=== PATIENT | female | born 1965 | race Caucasian/White ===

== ENCOUNTER 2016-07-23 18:31 | Inpatient (IN) ==
[2016-07-23] MEDS ORDERED: ONDANSETRON 4 MG/2 ML VIAL IV STA ×2 (19:03→21:29)
[2016-07-23] MEDS ORDERED: SODIUM CHLORIDE 0.9% 500 ML IV STA (19:03)
--- NOTE | 2016-07-23 19:08 | EKG Report ---
Stationary ECG Study [facility] ER Test Date: 07/23/2016 6:40:28 PM Pat Name: PREETHI ANGELES Department: Room: 540 Gender: F Cager Operator: Lore : 1965 Requested by: Carlton Gonzalez Order Number: [id number] Reading MD: TOMAS EPPERSON Intervals [place]in Rate: 73 P: 54 AR: 199 QRS: -4 QRSD: 120 T: 46 QT: 391 QTc: 417 Interpretive Statements SINUS [id number] PRWP Electronically Signed On 07-26-16 13:13:50 ROUTE MANAGER by TOMAS EPPERSON [email or web address]
--- NOTE | 2016-07-23 19:44 | Emergency Department Note ---
IManuelito Gwan, am scribing for, and in the presence of, Carlton Huynh MD 19 :14. IAmina Charles R, MD, personally performed the services described in this documentation, ascribed by Pérez Billings in my presence, and it is both accurate and complete 944 . Arrival - Arrival Chief Complaint: Syncope Stated Complaint: faint, headache, throwing up, chills ED Nursing Triage Note: c/o having headache that started around 1500 today, states she then had a syncope episode x 3.,states no witness of the syncope episode, states she layed down on the floor and then the next thing she knew she was waking up, + abdomen pain, states this has happen in the past and it was due to her blood pressure dropping, states she got nauseated after her headache, patient states she is having generalized weakness, ekg obtained at time of triage, Mode of Arrival: Wheelchair Limitations: No Limitations Source: Patient, Old Records Reviewed, RN Notes Reviewed Time Seen by Provider: 07/23/16 18:51 - History of Present Illness HPI Narrative: Pt is a 51 y/o female, with a hx of migraines and HTN, who presents to the ED for further evaluation of MARTIN, syncope, N/V/D with an onset 1500 today. Patient stated that she was out shopping when she developed a MARTIN. Shortly after she began to have nausea and abd pain causing her to go to the bathroom. After she got into the bathroom, the pt then noted that she had a syncope episode. She then stated that she has been having V/D, generalized weakness and chills. This has prompted her visit to the ED for further evaluation. Nurses noted that the pt has had this happen before due to hypotension and that the pt had a syncope episode 3 times today. Patient confirmed that she last ate at 1100 today. She denies fever or chest pain. During exam, pt said that she still has a MARTIN and N/ D. No other problems/complaints reported in ED. Onset (ago): hour(s) Consistency: constant Severity: moderate Date of Last Menstrual Period: hyst Allergies/Adverse Reactions: Allergies Allergy/AdvReac Type Severity Reaction Status Date / Time No Known Allergies Allergy Unverified 07/23/16 18:38 Home Medications: Home Medications Medication Instructions Recorded Confirmed Type buPROPion XL [Wellbutrin Xl] 300 mg PO DAILY 07/23/16 07/23/16 History hydroCHLOROthiazide 12.5 mg PO DAILY 07/23/16 07/23/16 History [Hydrochlorothiazide] Review of System - Review of System 12 point system: reviewed and no additional remarkable complaints except as stated - Review of System Constitutional: Present: as per HPI, chills, weakness Gastrointestinal: Present: as per HPI, abdominal pain, nausea, vomiting, diarrhea Neurological: Present: headache Medical,Surgical,& Family Hx - Medical History Cardio: History of: Hypertension Psychological: History of: ADHD - Social History Smoking Status: Never smoker Frequency of Alcohol Use: None Type of Drug Use: None Exam Vital Signs: Vital Signs Temperature 97.4 F L 07/23/16 18:32 Pulse Rate 78 07/23/16 22:01 Respiratory Rate 20 07/23/16 22:01 Blood Pressure 131/88 07/23/16 22:01 O2 Sat by Pulse Oximetry 100 07/23/16 22:01 - General General appearance: alert, in no apparent distress - Head Head exam: Present: atraumatic, normocephalic - Eye Eye exam: Present: normal appearance, PERRL, EOMI - ENT ENT exam: Present: mucous membranes dry - Neck Neck exam: Present: full ROM, trachea midline. Absent: tenderness, meningismus , lymphadenopathy, thyromegaly - Chest Chest inspection: Present: symmetric chest wall rise. Absent: tenderness - Respiratory Respiratory exam: Present: normal lung sounds bilaterally. Absent: respiratory distress - Cardiovascular Cardiovascular exam: Present: regular rate, normal rhythm, normal heart sounds. Absent: murmur, rubs, gallop, clicks - Abdominal Exam Abdominal exam: Present: soft, hyperactive bowel sounds - Extremities Exam Extremities exam: Present: full ROM. Absent: tenderness, pedal edema, calf tenderness - Back Exam Back exam: Present: full ROM. Absent: tenderness - Neurological Exam Neurological exam: Present: alert, oriented X3, CN II-XII intact. Absent: motor sensory deficit - Psychiatric Psychiatric exam: Present: normal affect, normal mood - Skin Skin exam: Present: warm, dry, intact, normal color Course - Reevaluation(s) Reevaluation #1: Patient still feeling weak and has similar symptoms occur prior to arrival fell faint flashes abdominal cramping nausea Time: 22:50 - Consultations Consultation #1: Dr. Greenberg will admit patient. Time: 22:50 Results - Labs CBC & BMP: 07/23/16 19:37 07/23/16 21:20 Lab Results: I have reviewed the patients labs Labs: Laboratory Tests 07/23/16 19:37 Urine pH 5.0 Ur Specific [place] 1.014 Urine Urobilinogen < 2.0 H Urine RBC <1 Urine WBC <1 Ur Squamous Epith Cells Occasional Urine Bacteria Occasional Hyaline Casts 6 Urine Mucus Occasional Microbiology 07/23/16 19:03 Throat Group A Streptococcus Rapid Screen - Final Negative for Grp A Strep Ag 07/23/16 19:03 Nasal Aspirate Influenza Types A,B Antigen (ANSHUL) - Final Negative for Influenza A Ag Negative for Influenza B Ag Laboratory Tests 07/23/16 21:20 Sodium 144 Potassium 4.1 Chloride 106 Carbon Dioxide 27 Anion Gap 15.1 H BUN 21 H Creatinine 0.80 BUN/Creatinine Ratio 26.00 H Glucose 121 H Magnesium 1.7 L Albumin/Globulin Ratio 1.0 L Serum Alcohol < 15 L - Diagnostic Findings Procedure: Abdominal x-ray: report reviewed by me (No acute radiographic abnormality in the abdomen. ), Chest x-ray: report reviewed by me (No acute pulmonary process.), CT: report reviewed by me (Head CT: No acute intracranial abnormality. ) Disposition Clinical Impression: Vasovagal syncope, Dehydration, Leukocytosis Case discussed with: patient, patient's family Disposition: Still a Patient Condition: Stable Time of Disposition: 22:59
[2016-07-23] MEDS ORDERED: ONDANSETRON 4 MG/2 ML VIAL ONE ×2 (20:00→21:30)
--- NOTE | 2016-07-23 20:05 | CT Report ---
CT head/brain wo con INDICATION: Syncope The total DLP is 1012 mGy*cm. COMPARISON: None available Technique: Serial axial tomographic images of the brain were obtained without the use of intravenous contrast. Findings: Mild generalized atrophy is noted with mild prominence of the sulci and cortical volume loss. There is no evidence of vascular territory infarct or acute intracranial hemorrhage. The anderson-white matter differentiation is generally maintained. There is no hydrocephalus. The basilar cisterns are patent. The visualized paranasal sinuses, mastoid air cells and middle ear cavities are predominantly clear. The included orbits and their contents appear within normal limits. The visualized osseous structures and overlying soft tissues of the skull and face demonstrate no acute abnormality. IMPRESSION: No acute intracranial abnormality. PROCEDURE INTERPRETED AT [facility] DEPARTMENT OF RADIOLOGY Final Report Signed by: Aditya Knight
[2016-07-23 20:11] LABS: Apearance,Urine Slightly Hazy (Clear); Bacteria,Urine Occasional /HPF (Few); Bilirubin,Urine Negative (Negative); Blood, Urine Negative (Negative); Glucose,Urine (UA) Negative (Negative); Hyaline Casts,Urine 6 /LPF (0-3); Ketones,Urine Negative (Negative); Mucus,Urine Occasional /LPF (Occasional); Nitrite,Urine Negative (Negative); Protein,Urine Negative; RBC,Urine <1 /HPF (0-4); Squamous Epithelial Cell,Urine Occasional /HPF (0-10); Urine Color Yellow (Yellow); Urine Specific Gravity 1.014 (1.001-1.035); Urine Urobilinogen < 2.0 EU/DL (0.2-1.0); WBC,Urine <1 /HPF (0-6)
[2016-07-23 20:23] LABS: Barbiturates Screen,Urine Negative (Negative); Benzodiazepines Screen,Urine Negative (Negative); Cannabinoid Screen,Urine Negative (Negative); Opiate Screen,Urine Negative (Negative); Phencyclidine Screen,Urine Negative (Negative)
--- NOTE | 2016-07-23 20:29 | XRay Report ---
XR abdomen 2V Clinical Information: Nausea, vomiting, diarrhea Comparison: None Findings: Bowel gas pattern is nonspecific and within normal limits. No abnormally dilated small bowel loops are identified to suggest obstruction. There is no free air identified. Scattered fecal material is noted throughout colon, which is otherwise nondilated. No abnormal focal soft tissue masses or calcific densities are identified in the abdomen or pelvis. Lung bases appear predominantly clear. There is no acute osseous abnormality. No suspicious osseous lesions are identified. Impression: No acute radiographic abnormality in the abdomen. PROCEDURE INTERPRETED AT [facility] DEPARTMENT OF RADIOLOGY Final Report Signed by: Aditya Knight
--- NOTE | 2016-07-23 20:30 | XRay Report ---
Exam: XR chest 1V portable Indication: Shortness of breath Comparison study: None Findings: The heart, mediastinum, and bony structures are within normal limits. There is no focal consolidation, pneumothorax or pleural effusion identified. Impression: No acute cardiopulmonary process. PROCEDURE INTERPRETED AT [facility] DEPARTMENT OF RADIOLOGY Final Report Signed by: Aditya Knight
[2016-07-23 20:54] LABS: Basophils # 0.1 10*3/uL (0.0-0.2); Basophils % 0.3 % (0.0-0.8); Eosinophils # 0.1 10*3/uL (0.0-0.87); Eosinophils % 0.4 % (0.00-10.9); Hematocrit 40.6 VOL% (35.7-47.0); Hemoglobin 14.4 GM/DL (12.0-16.0); Immature Granulocytes % 0.4 %; Immature Granulocytes Absolute 0.07 #; Lymphocytes # 0.6 10*3/uL (1.4-4.0); Lymphocytes % 3.1 % (21.3-54.2); Mean Corpuscular HGB Conc 35.5 GM/DL (32-36); Mean Corpuscular Hemoglobin 33 PG (27-34); Mean Corpuscular Volume 91.6 FL (87-102); Monocytes # 0.7 10*3/uL (0.11-0.8); Monocytes % 3.8 % (1.7-12.7); Neutrophils # 17.1 10*3/uL (1.4-7.4); Platelet Count 300 T/CUMM (130-400); Red Blood Count 4.43 MC/CUMM (3.8-5.5); White Blood Count 18.6 T/CUMM (4-12)
[2016-07-23] MEDS ORDERED: HYDROmorphone 2 MG/1 ML VIAL IV STA (21:29)
[2016-07-23] MEDS ORDERED: HYDROmorphone 2 MG/1 ML VIAL ONE (21:30)
[2016-07-23] MEDS ORDERED: diphenhydrAMINE 50 MG/1 ML VIAL ONE (21:46)
[2016-07-23 21:48] LABS: Band Neutrophils 1 % (0-10); Eosinophils 1 % (0-10); Lymphocytes 5 % (20-55); Platelet Estimate Normal; Segmented Neutrophils 90 % (50-85); Total Cells Counted 100
[2016-07-23 21:55] LABS: Alanine Aminotransferase 27 U/L (13-56); Albumin 3.5 G/DL (3.4-5.0); Alkaline Phosphatase 74 U/L (45-117); Amylase 36 U/L (25-115); Aspartate Amino Transferase 17 U/L (0-37); Blood Urea Nitrogen 21 MG/DL (7-18); Calcium 8.7 MG/DL (8.5-10.1); Glucose 121 MG/DL (74-106); Magnesium 1.7 MG/DL (1.8-2.4); Osmolality,Calculated 289.8 MOS/KG (273-304); Potassium 4.1 MMOL/L (3.5-5.1); Sodium 144 MMOL/L (136-145); Total Protein 6.9 G/DL (6.4-8.3); Troponin I Only < 0.015 NG/ML (0.00-0.045)
[2016-07-23] MEDS ORDERED: LEVOFLOXACIN INJ 500 MG in PREMIX 1 EACH IV STA (22:59)
[2016-07-23] MEDS ORDERED: metroNIDAZOLE INJ 500 MG in PREMIX 1 EACH IV STA (22:59)
[2016-07-23] MEDS ORDERED: LEVOFLOXACIN INJ 100 ML IV ONE (23:15)
[2016-07-23] MEDS ORDERED: metroNIDAZOLE 500 MG/100 ML PREMIX IV ONE (23:15)
[2016-07-23] MEDS ORDERED: MORPHINE 2 MG/1 ML SYRINGE IV PRN (23:54)
[2016-07-23] MEDS ORDERED: ACETAMINOPHEN 325 MG TABLET PO PRN (23:54)
--- NOTE | 2016-07-23 23:59 | Hospitalist History & Physical ---
Assessment and Plan (1) Vasovagal syncope Status: Acute Current Visit: Yes (2) Enteritis Status: Acute Current Visit: Yes (3) Acute diarrhea Status: Acute Assessment and plan: Plan: Admit for IV fluid resuscitation, check stool studies, will empirically start Cipro and Flagyl due to possible infectious/inflammatory enteritis. Otherwise supportive care for pain and nausea. Current Visit: Yes History of Present Illness Chief complaint: syncopal episode History of present illness: Ms. Meyer is a 51 year old female with hypertension who is with her daughter today and had a syncopal episode around 330 p.m. She was in a department store , went to the bathroom and woke up on the floor she states. On arrival to the ER she states she had 2 episodes of large amount of nonbloody diarrhea and has abdominal pain. Vitals were stable until during my exam she exhibited hypotension with systolic as low as 70s. This is confirmed on manual blood pressure cuff measurement by the nurse. Her main complaints right now or significant nausea and diffuse abdominal pain. Her blood pressure responded well to IV fluids, she is now hemodynamically stable and being admitted to the floor for further workup. Her CT abdomen and pelvis in the ER was consistent with possible enteritis. Home Medications Medication Instructions Recorded Confirmed Type buPROPion XL [Wellbutrin Xl] 300 mg PO DAILY 07/23/16 07/23/16 History hydroCHLOROthiazide 12.5 mg PO DAILY 07/23/16 07/23/16 History [Hydrochlorothiazide] Ascorbic Acid Tab [Vitamin C Tab] 500 mg PO DAILY 07/24/16 07/24/16 History Aspirin [Ecotrin] 81 mg PO DAILY 07/24/16 07/24/16 History Calcium (Citrate) [Citracal] 1 tablet PO DAILY 07/24/16 07/24/16 History Cinnamon Bark [Cinnamon] 1,000 mg PO DAILY 07/24/16 07/24/16 History Estradiol Tab [Estrace Tab] 2 mg PO BEDTIME 07/24/16 07/24/16 History Multivits,Ca,Minerals/Iron/FA 1 tablet PO DAILY 07/24/16 07/24/16 History [Women's Daily Formula Caplet] [place]-3 Fatty Acids [Fish Oil] 500 mg PO DAILY 07/24/16 07/24/16 History Vit B Comp/C/FA/Iron/Vit E 1 tablet PO DAILY 07/24/16 07/24/16 History [Vitamin B Complex Tablet] Allergies Allergy/AdvReac Type Severity Reaction Status Date / Time Hydromorphone [From Dilaudid] Allergy Intermediate ITCHING Verified 07/23/16 23: 30 Medical,Surgical,& Family Hx - Medical History Cardio: History of: Hypertension Psychological: History of: ADHD Endocrine: No history of: Diabetes Mellitus (NIDDM) - Surgical History Reproductive Surgeries: Surgical HX of;: Hysterectomy - Social History Smoking Status: Never smoker Frequency of Alcohol Use: None Type of Drug Use: None Marital Status: Unknown Functional capacity: independent ambulation Review of systems: A 12 point review of systems is negative except as specified in the HPI Exam - Constitutional Vitals: Period Temp Pulse Resp BP Sys/Boateng Pulse Ox Last 24 Hr 97.4 F 63-78 16-20 127-133/70-88 100-100 Exam: EXAM: CONSTITUTIONAL: non toxic, NAD HEENT: NC, AT, OP benign, CANDE, EOMI CV: RRR no m/g/r RESP: clear B/L, no w/r/r GI: abd soft, mild diffuse tenderness, ND, +bowel sounds INTEGUMENTARY: no lesions or rash EXTREMITIES: no c/c/e NEURO: no focal deficits PSYCH: Awake alert and oriented Heme positive stool Results - Labs CBC & BMP: 07/23/16 19:37 07/23/16 21:20 Lab Results: I have reviewed the past 24 hour labs - Diagnostic Findings Procedure: Chest x-ray: image reviewed by me, report reviewed by me, CT Abdomen and Pelvis: image reviewed by me, report reviewed by me, CT: image reviewed by me, report reviewed by me
[2016-07-24] MEDS ORDERED: SODIUM CHLORIDE 0.9% 1,000 ML IV ONE (00:29)
[2016-07-24] MEDS: ONDANSETRON 4 MG/2 ML VIAL IV PRN ×2 (00:37→05:20)
[2016-07-24] MEDS ORDERED: ONDANSETRON 4 MG/2 ML VIAL ONE (00:38)
[2016-07-24] MEDS ORDERED: SODIUM CHLORIDE 0.9% 1,000 ML IV SCH (01:00)
[2016-07-24] MEDS: CIPROFLOXACIN INJ 400 MG in PREMIX 1 EACH IV SCH ×2 (01:52→13:38)
[2016-07-24 06:31] LABS: Basophils % 0.2 % (0.0-0.8); Eosinophils % 0.2 % (0.00-10.9); Hematocrit 34.2 VOL% (35.7-47.0); Immature Granulocytes % 0.3 %; Immature Granulocytes Absolute 0.03 #; Lymphocytes # 0.9 10*3/uL (1.4-4.0); Lymphocytes % 8.5 % (21.3-54.2); Mean Corpuscular HGB Conc 35.1 GM/DL (32-36); Mean Corpuscular Hemoglobin 32 PG (27-34); Mean Corpuscular Volume 91.2 FL (87-102); Mean Platelet Volume 9.1 FL (9.6-12.0); Monocytes # 0.4 10*3/uL (0.11-0.8); Monocytes % 3.5 % (1.7-12.7); Neutrophils # 8.8 10*3/uL (1.4-7.4); Neutrophils % 87.3 % (38.7-73.9); Platelet Count 267 T/CUMM (130-400); Red Blood Count 3.75 MC/CUMM (3.8-5.5)
[2016-07-24 07:01] LABS: Albumin 2.9 G/DL (3.4-5.0); Bilirubin,Total 0.9 MG/DL (0.2-1.0); Calcium 7.8 MG/DL (8.5-10.1); Magnesium 1.8 MG/DL (1.8-2.4); Potassium 3.7 MMOL/L (3.5-5.1); Total Protein 5.7 G/DL (6.4-8.3)
[2016-07-24 07:03] LABS: Troponin I Only < 0.015 NG/ML (0.00-0.045)
--- NOTE | 2016-07-24 08:12 | CT Report ---
CT abdomen pelvis w con Indication: Abdominal pain, hypotension Comparison: None available Technique: CT of the abdomen and pelvis was performed following administration of intravenous contrast. Coronal and sagittal reformatted images were additionally created and submitted for review. The total DLP is 967.7 mGy*cm. Findings: Very minimal posterior basilar dependent atelectatic changes are noted bilaterally. Lung bases are otherwise clear. There is no pleural or pericardial effusion. ABDOMEN: Liver/Gallbladder: No abnormal enhancing hepatic lesions. Sinuses patent. There is no biliary ductal dilatation or gallstones visualized. Spleen: No acute findings. Pancreas: No acute findings. Adrenals: Within normal limits in appearance. Kidneys: Both kidneys enhance symmetrically. There is normal excretion of contrast from both kidneys on delayed images. Bowel/mesentery: Small bowel is diffusely fluid-filled with may represent a degree of underlying enteritis. There is no evidence of bowel obstruction. There is no free fluid/air within the abdomen. Appendix is normal. A few mildly prominent scattered mesenteric lymph nodes are noted within the central mesentery as well as minimal mesenteric fat stranding, which is nonspecific. Retroperitoneum: No evidence of aortic aneurysm or significant retroperitoneal adenopathy. PELVIS: No free fluid in the dependent pelvis. Bladder is distended but otherwise unremarkable. There has been a prior hysterectomy. There is no adenopathy. BONES: No acute or suspicious osseous abnormalities are identified. Mild degenerative changes are noted within the lower lumbar spine.. IMPRESSION: 1. No acute abnormality within the abdomen or pelvis to explain patient's symptoms. 2. Minimal stranding within the central mesenteric root and scattered nonenlarged but increased in number lymph nodes which are favored to be reactive and are otherwise nonspecific. Preliminary report by virtual radiologic 07/24/2016 8:03 AM PROCEDURE INTERPRETED AT [facility] DEPARTMENT OF RADIOLOGY Final Report Signed by: Aditya Knight
[2016-07-24] MEDS: PANTOPRAZOLE 40 MG TABLET PO SCH (08:32)
[2016-07-24] MEDS: metroNIDAZOLE INJ 500 MG in PREMIX 1 EACH IV SCH ×3 (08:32→22:48)
--- NOTE | 2016-07-24 09:12 | Hospitalist Progress Note ---
Assessment and Plan (1) Vasovagal syncope Status: Resolved Current Visit: Yes (2) Leukocytosis Status: Acute Assessment and plan: White count is down this morning after rehydration. I do think she has presumed gastroenteritis which is improving. Current Visit: Yes (3) Enteritis Status: Acute Assessment and plan: I presume this is infectious in nature she's responded to current medical management. She does test positive for occult blood which I feel like is related to her underlying infection. We'll continue to monitor at this time will hold off on a GI consultation especially if her hemoglobin and hematocrit remain stable. This dropped significantly and she has any more diarrhea will consult him. I do expect this is slight drop in it but I feel like this will be mostly dilutional as she is receiving IV fluids. Current Visit: Yes Hospitalist: Subjective Interval history: Mrs. Meyer is a 51-year-old female who was admitted last night for vasovagal syncope as she was on the toilet defecating when she woke up on the floor. She also started having some diarrhea yesterday and it is felt like she has a gastroenteritis presumably infectious. Her occults stool came back positive however she has not had any more diarrhea since 2 a.m. this morning. Clinically she is a little better. She does work as a third grade schoolteacher and has been exposed to children with his GI symptoms recently. Exam - Constitutional Vitals: Period Temp Pulse Resp BP Sys/Boateng Pulse Ox Last 24 Hr 97.6 F-98.4 F 54-76 16-20 99-110/53-78 67-100 General appearance: normal weight, no acute distress Exam: Patient appears as if she doesn't feel well but she is nontoxic looking - Head Head exam: Present: normocephalic, atraumatic - Eye Eye exam: Present: EOMI Pupils: Present: CANDE - Respiratory Respiratory exam: Present: clear to auscultation bilaterally - Cardiovascular Cardiovascular exam: Present: regular rate and rhythm - GI/Abdominal GI/Abdominal exam: Present: hypoactive bowel sounds, tenderness, soft - Extremities Exam Extremities exam: Present: full ROM - Neurological Exam Neurological exam: Present: alert, oriented X3, CN II-XII intact - Psychiatric Psychiatric exam: Present: normal affect, normal mood - Skin Skin exam: Present: warm, intact Results - Labs CBC & BMP: 07/24/16 06:03 02/19/17 06:03
[2016-07-24] MEDS: diphenhydrAMINE CAP 50 MG CAPSULE PO PRN ×3 (13:39→22:46)
[2016-07-25] MEDS: metroNIDAZOLE INJ 500 MG in PREMIX 1 EACH IV SCH ×2 (00:23→09:34)
[2016-07-25] MEDS: CIPROFLOXACIN INJ 400 MG in PREMIX 1 EACH IV SCH ×2 (00:36→03:12)
[2016-07-25 06:50] LABS: Basophils % 0.5 % (0.0-0.8); Eosinophils # 0.2 10*3/uL (0.0-0.87); Eosinophils % 2.9 % (0.00-10.9); Hematocrit 32.8 VOL% (35.7-47.0); Hemoglobin 10.9 GM/DL (12.0-16.0); Immature Granulocytes % 0.2 %; Immature Granulocytes Absolute 0.01 #; Lymphocytes # 2.2 10*3/uL (1.4-4.0); Lymphocytes % 38.8 % (21.3-54.2); Mean Corpuscular HGB Conc 33.2 GM/DL (32-36); Mean Corpuscular Hemoglobin 32 PG (27-34); Mean Corpuscular Volume 95.9 FL (87-102); Mean Platelet Volume 8.9 FL (9.6-12.0); Monocytes # 0.6 10*3/uL (0.11-0.8); Monocytes % 10.4 % (1.7-12.7); Neutrophils # 2.7 10*3/uL (1.4-7.4); Neutrophils % 47.2 % (38.7-73.9); Platelet Count 224 T/CUMM (130-400); Red Blood Count 3.42 MC/CUMM (3.8-5.5); Red Cell Distribution Width 12.3 % (9.3-17.3); White Blood Count 5.6 T/CUMM (4-12)
[2016-07-25 07:19] LABS: Calcium 7.8 MG/DL (8.5-10.1); Osmolality,Calculated 287.6 MOS/KG (273-304); Potassium 3.4 MMOL/L (3.5-5.1)
[2016-07-25 07:23] VITALS: BP 111/61
[2016-07-25] MEDS ORDERED: ENOXAPARIN 40 MG/0.4 ML SYRINGE SUBCUT SCH (09:00)
[2016-07-25] MEDS: PANTOPRAZOLE 40 MG TABLET PO SCH (09:34)
--- NOTE | 2016-07-25 09:42 | Discharge Summary ---
<Tanesha Barnes - Last Filed: 07/25/16 09:38> Hospital Course - Hospital Course Hospital Course: Ms. Meyer was admitted on 07/23/16 with syncopal episode while on the toilet. She had also been having a large amount of nonbloody diarrhea and abdominal pain. She was found to be hypotensive on arrival to the ER. She was given IV fluid resuscitation, and stared on Cipro and Flagyl for possible infectious/ inflammatory enteritis. Her stool studies were negative for pathogens, c diff, wbc's. She did have 2+ positive for occult blood. Strep and flu negative as well as blood cx's. Her WBC on admit was 18.6 and today is down to 5.6. She states that she is feeling much better, and has tolerated her diet thus far. She will be discharged home today on appropriate medications and follow up. - Time spent with patient Time with patient DS: Greater than 30 minutes (due to plan, doc and med rec.) Diagnosis - Discharge Diagnosis (1) Dehydration Status: Resolved (2) Enteritis Status: Resolved (3) Leukocytosis Status: Resolved (4) Vasovagal syncope Status: Resolved Discharge Plan - Discharge Data Disposition: Disch To Home/Self Care - Discharge Medications Continue buPROPion XL [Wellbutrin Xl] 300 mg PO DAILY Ascorbic Acid Tab [Vitamin C Tab] 500 mg PO DAILY Calcium (Citrate) [Citracal] 1 tablet PO DAILY [place]-3 Fatty Acids [Fish Oil] 500 mg PO DAILY Cinnamon Bark [Cinnamon] 1,000 mg PO DAILY Vit B Comp/C/FA/Iron/Vit E [Vitamin B Complex Tablet] 1 tablet PO DAILY Aspirin [Ecotrin] 81 mg PO DAILY hydroCHLOROthiazide [Hydrochlorothiazide] 12.5 mg PO DAILY Estradiol Tab [Estrace Tab] 2 mg PO BEDTIME No Action Multivits,Ca,Minerals/Iron/FA [Women's Daily Formula Caplet] 1 tablet PO DAILY - Follow Up or Referral Follow Up: Nick Samaniego MD [Physician] - 2 Weeks - Forms/Instructions Exam - Constitutional Vitals: Period Temp Pulse Resp BP Sys/Boateng Pulse Ox Last 24 Hr 97.5 F-98.4 F 58-70 16-18 96-127/51-70 95-97 Discharge Results Procedures and tests throughout hospitalization: Pending Orders 07/24/16 01:00 Occult Blood, Stool Stat Labs on day of discharge: Labs from last 24 hours 07/25/16 07/25/16 06:34 06:34 WBC 5.6 D RBC 3.42 L Hgb 10.9 L Hct 32.8 L MCV 95.9 MCH 32 MCHC 33.2 RDW 12.3 Plt Count 224 MPV 8.9 L Neut % (Auto) 47.2 Lymph % (Auto) 38.8 [place] % (Auto) 10.4 Eos % (Auto) 2.9 Baso % (Auto) 0.5 Neut # (Auto) 2.7 Lymph # (Auto) 2.2 [place] # (Auto) 0.6 Eos # (Auto) 0.2 Baso # (Auto) 0.0 Immature Gran % 0.2 Nucleated RBC % 0.0 Immature Gran # 0.01 Nucleated RBCs # 0.00 Sodium 146 H Potassium 3.4 L Chloride 110 H Carbon Dioxide 28 Anion Gap 11.4 BUN 8 Creatinine 0.70 GFR Calculation 114 BUN/Creatinine Ratio 11.00 Glucose 94 Calculated Osmolality 287.6 Calcium 7.8 L Magnesium 2.0 Preliminary micro results at discharge 07/24/16 06:03 Blood Culture - Preliminary Blood No growth at 1 day 07/24/16 06:03 Blood Culture - Preliminary Blood No growth at 1 day DS: Provider Date of admission: 07/23/16 23:54 Primary care physician: . No PCP Attending physician on admission: Shikha Carson MD Discharging clinician: Tanesha Barnes NP Expected date of discharge: 07/25/16 <Shikha Carson - Last Filed: 07/25/16 10:41> Hospital Course - Hospital Course Hospital Course: She hasn't had any more bleeding since admissions and it is felt the bleeding was likely related to the inflammation from her enteritis. she is 51 years of age and will need a colonsocopy. I have discussed case with GI and will arrange for outpatient follow up in about 2-3 weeks. Diagnosis - Discharge Diagnosis (1) Vasovagal syncope Status: Resolved (2) Leukocytosis Status: Resolved (3) Enteritis Status: Resolved Discharge Plan - Discharge Data Condition at Discharge: Stable Discharge Diet: advance to your usual diet Activity: resume usual activities as tolerated Hygiene: no restrictions Contact your physician if you experience:: Nausea/Vomiting, Bleeding Exam - Constitutional General appearance: no acute distress - Head Head exam: Present: normocephalic, atraumatic - Eye Eye exam: Present: EOMI Pupils: Present: CANDE - ENT ENT exam: Present: normal exam - Neck Neck exam: Present: normal inspection - Respiratory Respiratory exam: Present: clear to auscultation bilaterally - Cardiovascular Cardiovascular exam: Present: regular rate and rhythm - GI/Abdominal GI/Abdominal exam: Present: normal bowel sounds, soft - Extremities Exam Extremities exam: Present: full ROM - Neurological Exam Neurological exam: Present: oriented X3, CN II-XII intact - Psychiatric Psychiatric exam: Present: normal affect, normal mood - Skin Skin exam: Present: warm, intact
== END 2016-07-25 12:00 | disposition home or self-care (01) | DRG 392 ==
LOC: N.ED 18:31 → N.EDINP 23:54 → N.5E 07-24 01:20
PROVIDERS: ADMIT Family Medicine; ATTEND Family Medicine